=== PATIENT | male | born 1940 | race Caucasian/White ===

== ENCOUNTER → 2018-01-08 09:06 | Outpatient (CLI) | payer MEDICARE, BC, SELFPAY ==
--- NOTE | 2018-01-08 | DI.CT.S_ITS ---
PROCEDURE: CT SINUS SCREEN WO CON INDICATIONS: CHRONIC SINUSITIS. The patient stated to the remote sensing technologist that no prior sinus surgery has been performed and it facial pain is present on the left. TECHNIQUE: Noncontrast 3.0 mm axial images acquired from the frontal sinuses to the mid-sella, with coronal and sagittal reformats. For radiation dose reduction, the following was used: automated exposure control, adjustment of mA and/or kV according to patient size. COMPARISON: None. FINDINGS: Image quality: Excellent. Maxillary Sinuses: No right-sided bony remodeling or destruction. In contrast, there is complete opacification of the left maxillary sinus by material that is higher than water in density at approximately 22 Hounsfield units, on this noncontrast CT. This appears to produce ostiolysis along the medial border of the sinus wall, with direct extension of this type of material into the adjacent ethmoid air cells on the left. Invasion into the orbit is not identified. The soft tissue radiodensity extending through the medial sinus wall involves the adjacent nasal turbinate. . Ethmoid Air Cells: No right-sided bony remodeling or destruction. Right ethmoid air cells are clear. The left ethmoid air cells are largely contiguously opacified by the soft tissue radiodensity extending from the left maxillary sinus immediately adjacent Sphenoid Sinuses: No bony remodeling or destruction. Sinuses are clear. Frontal Sinuses: No bony remodeling or destruction. Sinuses are clear. Ostiomeatal Complexes: Ostiomeatal complexes are patent. No Quin cells. Miscellaneous: Visualized intra-orbital contents are normal. No darryl bullosa or paradoxical turbinate curvature. No nasal septal deviation. IMPRESSION: Complete opacification of the left maxillary sinus with direct extension through the medial wall of the left maxillary sinus into the adjacent ethmoid air cells. Chronic infection or malignancy both could produce this appearance. ENT physician specialist is the ordering health care provider for this examination. The remaining paranasal sinuses and mastoid air cells visualized by this examination appear normal. Dictated by: Jesus Flowers M.D. on 01/08/2018 at 9:53 Approved by: Jesus Flowers M.D. on 01/08/2018 at 10:01
== END ==
PROVIDERS: Visit Provider Otolaryngology
DX: J32.0 Chronic maxillary sinusitis (principal); R93.0 Abnormal findings on diagnostic imaging of skull and head, not elsewhere classified
CPT/HCPCS: 70486

== ENCOUNTER → 2019-01-20 07:14 | Outpatient (CLI) | payer MEDICARE, BC, SELFPAY ==
[2019-01-20 07:50] LABS: Add Manual Diff / Slide Review NO; Basophils Absolute Auto 100 /uL (0-100); Basophils Percent Auto 1.1 % (0-2); Eosinophils Absolute Auto 100 /uL (0-450); Eosinophils Percent Auto 2.1 % (2-4); Hemoglobin 15.2 g/dL (13.5-17.5); Lymphocytes Absolute Auto 1900 /uL (1100-4500); Lymphocytes Percent Auto 31.6 % (25-40); Mean Corpuscular HGB Conc 33.8 % (30-36); Mean Corpuscular Hemoglobin 31.4 PG (26-34); Mean Corpuscular Volume 92.8 fL (80-100); Monocytes Absolute Auto 600 /uL (0-900); Neutrophils Absolute Auto 3200 /uL (1500-7000); Neutrophils Percent Auto 54.2 % (50-75); Platelet Count 161 X10^3/uL (150-400); Red Blood Cell Count 4.85 X10^6/uL (4.5-5.9); Red Cell Distribution Width 13.7 % (11.6-14.8); White Blood Cell Count 5.9 X10^3/uL (4.5-11.0)
[2019-01-20 08:07] LABS: Alanine Aminotransferase 45 IU/L (21-72); Albumin 4.2 g/dL (3.5-5.0); Albumin Globulin Ratio 1.2 (1.0-2.8); Alkaline Phosphatase 47 U/L (38-126); Aspartate Aminotransferase 31 IU/L (17-59); BUN Creatinine Ratio 23.3 (6-22); Bilirubin Total 0.8 mg/dL (0.2-1.3); Blood Urea Nitrogen 21 mg/dL (9-20); Calcium 9.2 mg/dL (8.4-10.2); Carbon Dioxide 29 mmol/L (22-32); Chloride 104 mmol/L (98-107); Estimated Glomerular Filt Rate > 60.0 mL/min (>60); Globulin 3.4 g/dL (1.7-4.1); Glucose 100 mg/dL (80-110); HEMOLYSIS 16 (0-50); Potassium 4.3 mmol/L (3.4-5.1); Sodium 140 mmol/L (137-145); Total Protein 7.6 g/dL (6.3-8.2)
[2019-01-20 08:51] LABS: Microalbumi Creatinin Ratio Ur 111.4 ug/mg CR (<30); Microalbumin Urine Random 14.6 mg/dL (0-1.6)
[2019-01-20 09:16] LABS: Thyroid Stimulating Hormone 1.27 uIU/mL (0.47-4.68)
== END ==
PROVIDERS: Visit Provider Nurse Practitioner
DX: I10 Essential (primary) hypertension (principal)
CPT/HCPCS: 36415; 80053; 82043; 82570; 84443; 85025

== ENCOUNTER 2024-10-17 19:12 | Emergency (ER) | payer MEDICARE, BC, SELFPAY ==
[2024-10-17] VITALS (8 sets, daily range): BP systolic 145–168; BP diastolic 83–100; PULSE 61–88; RESP 15–22; TEMP 36.8–37.1; O2SAT 94–100; BMI 29.5
--- NOTE | 2024-10-17 19:35 | DI.RAD.S_ITS ---
PROCEDURE: XR CHEST 1V INDICATIONS: Chest Pain TECHNIQUE: One view of the chest was acquired. COMPARISON: None. FINDINGS AND IMPRESSION: On this single view study with low lung volumes, no dense airspace disease or pleural effusion is seen. Heart size is at the upper limit of normal. Degenerative osseous changes. Dictated by: Victoriano Mendoza M.D. on 10/17/2024 at 20:26 Approved by: Victoriano Mendoza M.D. on 10/17/2024 at 20:26
[2024-10-17] MEDS: ONDANSETRON 4 MG/2 ML INJ IV (19:40)
--- NOTE | 2024-10-17 19:42 | PC.NURSE ---
Imaging at bedside
[2024-10-17 19:43] LABS: Add Manual Diff / Slide Review NO; Basophils Absolute Auto 0 /uL (0-100); Basophils Percent Auto 0.7 % (0-2); Eosinophils Absolute Auto 100 /uL (0-450); Eosinophils Percent Auto 1.9 % (2-4); Hematocrit 37.3 % (41-53); Hemoglobin 12.9 g/dL (13.5-17.5); Lymphocytes Absolute Auto 1300 /uL (1100-4500); Lymphocytes Percent Auto 19.5 % (25-40); Mean Corpuscular HGB Conc 34.6 % (30-36); Mean Corpuscular Hemoglobin 31.9 PG (26-34); Mean Corpuscular Volume 92.1 fL (80-100); Monocytes Absolute Auto 700 /uL (0-900); Monocytes Percent Auto 9.9 % (3-14); Neutrophils Absolute Auto 4700 /uL (1500-7000); Platelet Count 161 X10^3/uL (150-400); Red Blood Cell Count 4.05 X10^6/uL (4.5-5.9); Red Cell Distribution Width 13.7 % (11.6-14.8); White Blood Cell Count 6.9 X10^3/uL (4.5-11.0)
[2024-10-17 19:44] LABS: INR 1.2 (0.9-1.3); Prothrombin Time 13.4 SECONDS (9.4-12.5)
[2024-10-17 19:46] LABS: PTT Partial Thromboplastin Tim 33 SECONDS (25.1-36.5)
[2024-10-17 19:48] LABS: Alanine Aminotransferase 26 IU/L (<50); Albumin 4.2 g/dL (3.5-5.0); Albumin Globulin Ratio 1.4 (1.0-2.8); Alkaline Phosphatase 65 U/L (38-126); Aspartate Aminotransferase 28 IU/L (17-59); BUN Creatinine Ratio 23.5 (6-22); Bilirubin Total 0.8 mg/dL (0.2-1.3); Blood Urea Nitrogen 20 mg/dL (9-20); Calcium 8.9 mg/dL (8.4-10.2); Carbon Dioxide 23 mmol/L (22-32); Chloride 106 mmol/L (98-107); Creatine Kinase 75 U/L (55-170); Estimated Glomerular Filt Rate > 60 mL/min (>60); Globulin 3.1 g/dL (1.7-4.1); Glucose 136 mg/dL (70-99); HEMOLYSIS < 15 (0-50); Lipase 30 U/L (23-300); Magnesium 1.8 mg/dL (1.6-2.3); Potassium 3.4 mmol/L (3.4-5.1); Sodium 138 mmol/L (137-145); Total Protein 7.3 g/dL (6.3-8.2)
--- NOTE | 2024-10-17 19:54 | EKG_ITS ---
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
[2024-10-17 19:59] LABS: NT-proBNP (BNP-Adult 18+) 821 pg/mL (<450); Troponin I < 0.012 ng/mL (0.01-0.034)
--- NOTE | 2024-10-17 20:04 | ED_ITS ---
HPI - Dizziness General Chief Complaint: Dizziness Stated Complaint: extreme vertigo Time Seen by Provider: 10/17/24 19:41 Source: patient and family Mode of arrival: Wheelchair History of Present Illness HPI Narrative: 84-year-old gentleman history of atrial fibrillation hypertension obstructive sleep apnea presents with dizziness after [place] along with headache nausea but no vomiting chest pain diaphoresis diarrhea weakness. Patient does also mention of sinus congestion for the last 3 4 days but no sore throat and an and an occasional dry cough. Family did do a home COVID test that was negative. He relates to history of vertigo in the remote past were feels like vertigo as he describes his dizziness that he had over 10 years ago. Other than what is stated 14 point review of system is negative Related Data Home Medications Medication Instructions Recorded Confirmed CPAP Device #1 ea 01/19/19 01/21/19 Previous Rx's Medication Instructions Recorded gabapentin 300 mg capsule 300 mg PO BID #60 caps 01/19/19 omeprazole 20 mg capsule,delayed 10 mg (1/2 x 20 mg) PO DAILY #45 01/19/19 release caps trazodone 50 mg tablet 50 mg PO BEDTIME #30 tabs 01/19/19 amoxicillin 875 mg-potassium 1 tab PO Q12H #14 tabs 10/17/24 clavulanate 125 mg tablet meclizine 25 mg tablet 25 mg PO TID PRN dizziness #30 tabs 10/17/24 Allergies Allergy/AdvReac Type Severity Reaction Status Date / Time No Known Drug Allergies Allergy Verified 01/21/19 13:54 Review of Systems Review of Systems ROS Unobtainable: All systems reviewed & are unremarkable except as noted in HPI and below Patient History Medical History (Updated 10/17/24 @ 22:49 by Dmitriy Pizarro DO) Restless leg syndrome Family History Father Congestive heart failure Social History Smoking Status: Never smoker Smoking Status: Never smoker Alcohol type: beer Exam Narrative Exam Narrative: GENERAL: [84] year old patient appears stated age. Well-developed patient, in mild distress. HEAD: Atraumatic. Normocephalic. EYES: Pupils equal round and reactive. Extraocular motions intact. No scleral icterus. No injection or drainage. ENT: Nose without bleeding, purulent drainage. Throat without erythema, tonsillar hypertrophy or exudate. Airway patent. NECK: Trachea midline. Non tender CARDIOVASCULAR: Regular rate and rhythm without murmurs, gallops, or rubs. RESPIRATORY: Clear to auscultation. Breath sounds equal bilaterally. No wheezes, rales, or rhonchi. GASTROINTESTINAL: Abdomen soft, non-tender, nondistended. EXTREMITIES: No edema or joint tenderness. BACK: Nontender without deformity or crepitance. No flank tenderness. NEURO: AOx3. SKIN: No rash or erythema of visible areas Initial Vital Signs Initial Vital Signs: Vital Signs Temperature 98.7 F 10/17/24 19:15 Pulse Rate 78 10/17/24 19:15 Respiratory Rate 20 10/17/24 19:15 Blood Pressure 167/90 H 10/17/24 19:15 Pulse Oximetry 99 10/17/24 19:15 Oxygen Delivery Method Room Air 10/17/24 19:15 Course Orders Ordered: ED Orders 10/17/24 19:30 Complete Blood Count AUTO DIFF Stat Comprehensive Metabolic Panel Stat Lipase Stat Magnesium Stat NT-proBNP (BNP-Adult 18+) Stat PTT Partial Thromboplastin Robert Stat Prothrombin Time INR Stat Troponin & CK Cardiac Panel Stat 10/17/24 19:35 XR chest 1V Stat EKG-12 Lead Stat 10/17/24 20:04 CT head/brain wo con Stat 10/17/24 20:43 Covid-19 + FLU A/B + RSV - PCR Stat Discontinued Medications Amoxicillin/Clavulanate Potassium (Amoxicillin/Clav 875/125 Mg) 1 tab PO NOW ONE Stop: 10/17/24 21:43 Last Admin: 10/17/24 21:53 Dose: 1 tab Documented By: JESICA Aspirin (Aspirin 81 Mg Chew Tab) 324 mg PO NOW ONE Stop: 10/17/24 19:36 Last Admin: 10/17/24 20:14 Dose: Not Given Documented By: JULI Meclizine HCl (Meclizine Hcl 12.5 Mg Tablet) 25 mg PO NOW ONE Stop: 10/17/24 20:06 Last Admin: 10/17/24 20:14 Dose: 25 mg Documented By: JULI Methylprednisolone (Methylprednisolone 125 Mg/2 Ml Vial) 125 mg IV NOW ONE Stop: 10/17/24 21:43 Last Admin: 10/17/24 21:53 Dose: 125 mg Documented By: JESICA Ondansetron HCl (Ondansetron 4 Mg/2 Ml Inj) 4 mg IV NOW ONE Stop: 10/17/24 19:37 Last Admin: 10/17/24 19:40 Dose: 4 mg Documented By: JLUI Ondansetron HCl (Ondansetron 4 Mg/2 Ml Inj) 4 mg IV NOW ONE Stop: 10/17/24 20:06 Last Admin: 10/17/24 20:14 Dose: Not Given Documented By: JULI Vital Signs Vital signs: Vital Signs - 8 hr 10/17/24 19:15 10/17/24 19:27 10/17/24 19:30 Temperature 98.7 F Pulse Rate 78 77 Respiratory Rate 20 22 Blood Pressure 167/90 H 168/86 H Pulse Oximetry 99 99 Oxygen Delivery Method Room Air Room Air 10/17/24 19:30 10/17/24 20:00 10/17/24 20:00 Temperature Pulse Rate 74 74 Respiratory Rate 18 Blood Pressure 145/100 H Pulse Oximetry 98 94 Oxygen Delivery Method Room Air 10/17/24 20:02 10/17/24 20:02 10/17/24 20:30 Temperature Pulse Rate 68 61 Respiratory Rate 15 Blood Pressure 151/86 H Pulse Oximetry 98 96 Oxygen Delivery Method 10/17/24 21:00 Temperature Pulse Rate 76 Respiratory Rate Blood Pressure Pulse Oximetry 100 Oxygen Delivery Method MDM - Dizziness Lab Data 10/17/24 19:30 10/17/24 19:30 Labs: Lab Results 10/17/24 10/17/24 Range/Units 19:30 20:43 WBC 6.9 (4.5-11.0) X10^3/uL RBC 4.05 L (4.5-5.9) X10^6/uL Hgb 12.9 L (13.5-17.5) g/dL Hct 37.3 L (41-53) % MCV 92.1 (80-100) fL MCH 31.9 (26-34) PG MCHC 34.6 (30-36) % RDW 13.7 (11.6-14.8) % Plt Count 161 (150-400) X10^3/uL Neut % (Auto) 68.0 (50-75) % Lymph % (Auto) 19.5 L (25-40) % [place] % (Auto) 9.9 (3-14) % Eos % (Auto) 1.9 L (2-4) % Baso % (Auto) 0.7 (0-2) % Neut # (Auto) 4700 (9175-2903) /uL Lymph # (Auto) 1300 (2268-8288) /uL [place] # (Auto) 700 (0-900) /uL Eos # (Auto) 100 (0-450) /uL Baso # (Auto) 0 (0-100) /uL PT 13.4 H (9.4-12.5) SECONDS INR 1.2 (0.9-1.3) APTT 33 (25.1-36.5) SECONDS Sodium 138 (137-145) mmol/L Potassium 3.4 (3.4-5.1) mmol/L Chloride 106 (98-107) mmol/L Carbon Dioxide 23 (22-32) mmol/L BUN 20 (9-20) mg/dL Creatinine 0.85 (0.66-1.25) mg/dL Estimated GFR > 60 (>60) mL/min BUN/Creatinine Ratio 23.5 H (6-22) Glucose 136 H (70-99) mg/dL Calcium 8.9 (8.4-10.2) mg/dL Magnesium 1.8 (1.6-2.3) mg/dL Total Bilirubin 0.8 (0.2-1.3) mg/dL AST 28 (17-59) IU/L ALT 26 (<50) IU/L Alkaline Phosphatase 65 (38-126) U/L Total Creatine Kinase 75 (55-170) U/L Troponin I < 0.012 (0.01-0.034) ng/mL NT-Pro-B Natriuret Pep 821 H (<450) pg/mL Total Protein 7.3 (6.3-8.2) g/dL Albumin 4.2 (3.5-5.0) g/dL Globulin 3.1 (1.7-4.1) g/dL Albumin/Globulin Ratio 1.4 (1.0-2.8) Lipase 30 (23-300) U/L SARS-CoV-2 (PCR) Negative (Negative) Influenza A (RT-PCR) Flu a negative (NEGATIVE) Influenza B (RT-PCR) Flu b negative (NEGATIVE) RSV (PCR) Negative (Negative) Imaging Data Chest x-ray: Radiologist's Impression: [address] [address] XRay Report Signed Patient: Wesly Montes MR#: [id number] : 1940 Acct:[id number] Age/Sex: 84 / M Date of Service: 10/17/24 Loc: ED Accession Number: [id number] Procedure: XR chest 1V Ordering Provider: Dmitriy Pizarro D.O. PROCEDURE: XR CHEST 1V INDICATIONS: Chest Pain TECHNIQUE: One view of the chest was acquired. COMPARISON: None. FINDINGS AND IMPRESSION: On this single view study with low lung volumes, no dense airspace disease or pleural effusion is seen. Heart size is at the upper limit of normal. Degenerative osseous changes. Dictated by: Victoriano Mendoza M.D. on 10/17/2024 at 20:26 Approved by: Victoriano Mendoza M.D. on 10/17/2024 at 20:26 CT scan - head: Radiologist's Impression: [address] [address] [address] Scan Report Signed Patient: Wesly Montes MR#: [id number] : 1940 Acct:[id number] Age/Sex: 84 / M Date of Service: 10/17/24 Loc: ED Accession Number: [id number] Procedure: CT head/brain wo con Ordering Provider: Dmitriy Pizarro D.O. PROCEDURE: CT HEAD/BRAIN WO CON INDICATIONS: dizziness, headache TECHNIQUE: Noncontrast 4.5 mm thick angled axial sections acquired from the foramen magnum to the vertex, with coronal and sagittal reformats. For radiation dose reduction, the following was used: automated exposure control, adjustment of mA and/or kV according to patient size. COMPARISON: None. FINDINGS: Image quality: Diagnostic CSF spaces: Basal cisterns are patent. Lateral ventricles are symmetric. Volume: Vascular calcifications. Periventricular white matter disease is commonly seen with chronic microangiopathy. Volume loss is present. These findings are moderate Brain: No intracranial hemorrhage. Rivera-white differentiation is grossly maintained. Craniofacial structures: Mild paranasal sinus mucosal thickening IMPRESSION: No acute intracranial abnormality. If there is high concern for parenchymal pathology, consider further evaluation with MRI. Dictated by: Victoriano Mendoza M.D. on 10/17/2024 at 20:47 Approved by: Victoriano Mendoza M.D. on 10/17/2024 at 20:48 ECG Data Interpretation: Afib HR 72 MS undetermined QRS [address]-t wave change No previous EKG to compare against MDM Narrative Medical decision making narrative: All lab work, vital signs, nurse triage note, medication list, previous ER visits, and all imaging modalities reviewed. Patient given meclizine 25 mg, Solu-Medrol 125 mg IV, Zofran [address] head did not show any acute process and chest x-ray showed heart size is the upper limit of normal and no dense airspace disease. Differential diagnosis include COVID, flu, RSV, pneumonia, viral labyrinthitis, benign positional vertigo, Meniere's disease, and acute bacterial sinusitis. DC home on Augmentin and and meclizine prescription. Follow up with PCP in 1-2 weeks for re-evaluation. Discharge Plan Departure Patient Disposition: Home Clinical Impression: Vertigo, Acute bacterial sinusitis Instructions: DI for Vertigo Activity Restrictions/Additional Instructions: Return with new or worsening symptoms. Take your medicines as directed. Follow up with PCP in 1-2 weeks for re-evaluation. Prescriptions: New amoxicillin-pot clavulanate 875-125 mg tablet 1 tab PO Q12H Qty: 14 0RF meclizine 25 mg tablet 25 mg PO TID PRN (Reason: dizziness) Qty: 30 0RF No Action omeprazole 20 mg capsule,delayed release(DR/EC) 10 mg PO DAILY Qty: 45 0RF gabapentin 300 mg capsule 300 mg PO BID Qty: 60 0RF trazodone 50 mg tablet 50 mg PO BEDTIME Qty: 30 0RF (DME) CPAP Device Qty: 1 Dose Instruction: As directed Rx Instructions: As directed Stand Alone Forms: Patient Portal/API/Survey
[2024-10-17] MEDS: MECLIZINE HCL 12.5 MG TABLET 25 MG PO (20:14)
--- NOTE | 2024-10-17 20:15 | PC.NURSE ---
Pt to imaging via ED stretcher with cdl service technician
[2024-10-17 21:27] LABS: COVID-19 CEPHEID 4-PLEX PCR Negative (Negative); Influenza A - CEPHEID Flu A NEGATIVE (NEGATIVE); Influenza B - CEPHEID Flu B NEGATIVE (NEGATIVE); Respiratory Syncytial Virus Negative (Negative)
[2024-10-17] MEDS: methylPREDNISolone 125 MG/2 ML VIAL IV (21:53)
[2024-10-17] MEDS: AMOXICILLIN/CLAV 875/125 MG 1 TAB PO (21:53)
== END 2024-10-17 23:17 | disposition home or self-care (01) ==
PROVIDERS: Emergency Provider Family Medicine
DX: R42 Dizziness and giddiness (principal); J01.90 Acute sinusitis, unspecified; R51.9 Headache, unspecified; R11.0 Nausea; R07.9 Chest pain, unspecified; R05.9 Cough, unspecified
CPT/HCPCS: 0241U; 36415; 70450; 71045; 80053; 82550; 83690; 83735; 83880; 84484; 85025; 85610; 85730; 93005; 96374; 96375; 99284; J2405; J2919